=== PATIENT | female | born 1980 | race African-American/Black ===

== ENCOUNTER 2017-10-13 03:38 | Emergency (ER) | payer MEDICAID, OTHER ==
[~2017-10-13] VITALS: Ht 165.1 cm; Wt 68.0 kg
[~2017-10-13 03:38] MED LIST: HYDR-4005 PO; IRON-15 PO; MULT-1146 PO
[2017-10-13] MEDS ORDERED: KETOROLAC 15MG/ML VIAL IV ONE (04:45)
[2017-10-13 04:49] LABS: BASOPHILS % 0.3 % (0.0-2.0); EOSINOPHILS % 1.5 % (0.0-5.0); HEMATOCRIT. 31.8 % (36.0-48.0); HEMOGLOBIN. 10.6 g/dL (12.0-16.0); LYMPHOCYTES % 24.8 % (20.0-50.0); MEAN CORPUSCULAR HEMOGLOBIN 26.6 pg (28.0-32.0); MEAN CORPUSCULAR VOLUME 79.6 fL (81.0-99.0); MEAN PLATELET VOLUME 8.3 fl (7.4-10.4); MONOCYTES % 7.3 % (2.0-8.0); NEUTROPHILS % 66.1 % (40.0-76.0); PLATELET 258 x1000/uL (130-400); RED BLOOD CELL COUNT 3.99 mill/uL (4.2-5.4); RED CELL DISTRIBUTION WIDTH 14.3 % (11.6-14.6)
[2017-10-13 04:55] LABS: CHLORIDE 106 mEq/L (98-107)
[2017-10-13 05:56] VITALS: BP 125/75
== END 2017-10-13 05:59 | disposition home or self-care (01) ==
LOC: ER 03:38
DX: R07.9 Chest pain, unspecified (principal); Z88.5 Allergy status to narcotic agent
CPT/HCPCS: 36415; 71045; 80053; 81025; 83690; 84484; 85025; 85379; 93005; 96374; 99285; J1885